=== PATIENT | female | born 1955 | race Caucasian/White ===

== ENCOUNTER 2023-10-08 14:52 | Outpatient (CLI) | payer MEDICARE ==
--- NOTE | 2023-10-08 16:26 | XRAY Report ---
PROCEDURE: Ribs w/PA Chest 3+V RT INDICATIONS: LOW BACK PAIN AND RIB PAIN TECHNIQUE: 2 views of the ribs were acquired, along with a single view chest. COMPARISON: Same day lumbar spine radiographs. FINDINGS: Surgical changes and devices: None. Bones and chest wall: No fractures or dislocations. No suspicious bony lesions. Overlying soft tis sues appear unremarkable. Lungs and pleura: No pleural effusions or pneumothorax. Lungs appear clear. Mediastinum: Mediastinal contours appear normal. Heart size is normal. IMPRESSION: No displaced rib fracture or pneumothorax. Reviewed by: Bjorn Cochran MD on 10/08/2023 4:25 PM PDT Approved by: Bjorn Cochran MD on 10/08/2023 4:25 PM PDT Station ID: [id number]
--- NOTE | 2023-10-08 16:49 | XRAY Report ---
PROCEDURE: Lumbar Spine 2-3V INDICATIONS: LOW BACK PAIN AND RIB PAIN TECHNIQUE: 3 views of the lumbar spine were acquired. COMPARISON: None. FINDINGS: Bones: 5 [id number] vertebrae are present. There is a moderate to severe L1 compression which m ay be acute or subacute. The bones are diffusely osteopenic. There is prominent lower lumbar facet ar thropathy. No suspicious bony lesions. Soft tissues: Overlying bowel gas pattern is normal. No suspicious soft tissue calcifications. IMPRESSION: Moderate to severe L1 compression, potentially acute or subacute. Comment: Consider lumbar spine MRI on a nonemergent basis to evaluate possible fracture acuity. Reviewed by: Dean Dutta MD on 10/08/2023 4:47 PM PDT Approved by: Dean Dutta MD on 10/08/2023 4:47 PM PDT Station ID: [id number]
== END 2023-10-08 14:53 | disposition home or self-care (01) ==
LOC: DI 14:52
PROVIDERS: ATTEND Internal Medicine
DX: R07.81 Pleurodynia (principal); M48.56XA Collapsed vertebra, not elsewhere classified, lumbar region, initial encounter for fracture

== ENCOUNTER 2023-10-18 13:15 | Outpatient (CLI) | payer MEDICARE ==
--- NOTE | 2023-10-18 14:50 | DEXA Report ---
PROCEDURE: Dexa Spine and/or Hip INDICATIONS: OSTEOPENIA TECHNIQUE: Dual energy x-ray absorptiometry (DXA) was performed on a [employer] System. Regions measur ed are the AP Spine, femoral neck, and if needed forearm. Bilateral hip arthroplasties. Forearm was s canned. COMPARISON: None FINDINGS: Lumbar Spine: Bone Mineral Density: 1.052 g/cm/cm,T score: -1.1. Osteopenia Left Forearm: Bone Mineral Density: 0.695 g/cm/cm, T score: -2.1. Osteopenia (T score greater or equal to -1.0: NORMAL) (T score from -1.1 to -2.4: OSTEOPENIA) (T score less than or equal to -2.5 to: OSTEOPOROSIS) Impression: By WHO criteria, this patient has low bone density (osteopenia). Patients with diagnosis of osteoporosis or osteopenia should have regular bone mineral density assess ment. For those eligible for Medicare, routine testing is allowed once every 2 years. Testing frequ ency can be increased for patients who have rapidly progressing disease or for those who are receivin g medical therapy to restore bone mass. Reviewed by: Dawn Smith MD on 10/18/2023 2:49 PM PDT Approved by: Dawn Smith MD on 10/18/2023 2:49 PM PDT Station ID: [id number]
--- NOTE | 2023-10-18 15:10 | DEXA Report ---
PROCEDURE: Dexa Spine and/or Hip INDICATIONS: OSTEOPENIA TECHNIQUE: Dual energy x-ray absorptiometry (DXA) was performed on a [employer] System. Regions measur ed are the AP Spine, femoral neck, and if needed forearm. Bilateral hip arthroplasties. Forearm was s canned. COMPARISON: None FINDINGS: Lumbar Spine: Bone Mineral Density: 1.052 g/cm/cm,T score: -1.1. Osteopenia Left Forearm: Bone Mineral Density: 0.695 g/cm/cm, T score: -2.1. Osteopenia (T score greater or equal to -1.0: NORMAL) (T score from -1.1 to -2.4: OSTEOPENIA) (T score less than or equal to -2.5 to: OSTEOPOROSIS) Impression: By WHO criteria, this patient has low bone density (osteopenia). Patients with diagnosis of osteoporosis or osteopenia should have regular bone mineral density assess ment. For those eligible for Medicare, routine testing is allowed once every 2 years. Testing frequ ency can be increased for patients who have rapidly progressing disease or for those who are receivin g medical therapy to restore bone mass. Reviewed by: Dawn Smith MD on 10/18/2023 3:09 PM PDT Approved by: Dawn Smith MD on 10/18/2023 3:09 PM PDT Station ID: [id number]
== END 2023-10-18 13:16 | disposition home or self-care (01) ==
LOC: DI 13:15
PROVIDERS: ATTEND Physician Assistant
DX: M85.89 Other specified disorders of bone density and structure, multiple sites (principal); Z96.643 Presence of artificial hip joint, bilateral